=== PATIENT | male | born 1935 | race Caucasian/White ===

== ENCOUNTER 2017-05-23 12:15 | Inpatient (IN) | payer MEDICARE ==
[~2017-05-23] VITALS: Ht 170.2 cm; Wt 105.8 kg
[~2017-05-23 12:15] MED LIST: AMLO2.5T PO; AMLO5TAB22 PO; ASPI325T PO; BRIM.2%O OU; GABA300C3 PO; GLUCTAB PO; HYDR-3533 PO; PERI8.6T PO; ROSU40 PO
[2017-05-23 12:24] VITALS: BP 129/62; PULSE 82; RESP 16; TEMP 98.4; O2SAT 94
[2017-05-23] MEDS ORDERED: ASPI325T PO (12:33)
[2017-05-23] MEDS ORDERED: METF500T4 PO (12:33)
[2017-05-23] MEDS ORDERED: ALPH0.1S RIGHT EYE (12:33)
[2017-05-23] MEDS ORDERED: ROSU5 PO (12:33)
[2017-05-23] MEDS ORDERED: GABA300C5 PO (12:33)
[2017-05-23] MEDS ORDERED: AMLO5TAB2 PO (12:33)
[2017-05-23] MEDS ORDERED: AMLO2.5T PO (12:33)
[2017-05-23 12:50] VITALS: RESP 16; O2SAT 94; O2SAT 97
[2017-05-23 12:57] LABS: AUTOMATED NEUTROPHIL # 5.5 TH/MM3 (1.8-7.7); BASOPHIL % 0.6 % (0.0-2.0); EOSINOPHIL # 0.2 TH/MM3 (0-0.4); EOSINOPHIL % 2.4 % (0.0-4.0); HEMATOCRIT 33.5 % (39.0-51.0); HEMO FLAGS DIFF FINAL; LYMPH % 18.9 % (9.0-44.0); LYMPHOCYTE # 1.5 TH/MM3 (1.0-4.8); MEAN CELL VOLUME 82.4 FL (80.0-100.0); MEAN CORPUSCULAR HEMOGLOBIN 27.1 PG (27.0-34.0); MEAN CORPUSCULAR HGB CONC 32.9 % (32.0-36.0); MONO % 9.4 % (0.0-8.0); NEUT % 68.7 % (16.0-70.0); PLATELET COUNT 297 TH/MM3 (150-450); RED BLOOD COUNT 4.07 MIL/MM3 (4.50-5.90); RED CELL DISTRIBUTION WIDTH 13.5 % (11.6-17.2)
--- NOTE | 2017-05-23 13:00 | PD ---
HPI Chief Complaint: General Weakness Time Seen by Provider: 12:35 Travel History International Travel<30 days: No Contact w/Intl Traveler<30days: No Traveled to known affect area: No History of Present Illness HPI 82 y/o male notes while transferring to his scooter falling and having a hard time getting up. His states that he normally cannot stand up on his own or walk and gets around with a scooter. He denies any pain from the fall and states he feels a little weak all over but he always feels like that. His is concerned because she couldn't get him up. Patient is a poor historian and history is limited. FORMERLY [facility], 1928–1983 Past Medical History Narrative Medical by records Hx Anticoagulant Therapy: Yes Cardiovascular Problems: Yes (HTN, CHOL) Diabetes: Yes Patient Takes Glucophage: Yes Diminished Hearing: Yes (DIMINISHED HEARING) Hypertension: Yes Musculoskeletal: Yes (SPINAL STENOSIS) Neurologic: Yes (NEUROPATHY) Tetanus Vaccination: Unknown Past Surgical History Narrative Surgical by records Other Surgery: Yes (PILONIDAL CYST) Social History Alcohol Use: No Tobacco Use: No Substance Use: No Allergies-Medications (Allergen,Severity, Reaction): Coded Allergies: Penicillin (Verified Allergy, Severe, 05/23/17) Reported Meds & Prescriptions Reported Meds & Active Scripts Active Reported Gabapentin 300 Mg Cap 900 Mg PO HS Alphagan P Opth Drops (Brimonidine Tartrate) 0.1% Soln 1 Drop RIGHT EYE BID Aspirin 325 Mg Tab 325 Mg PO DAILY Amlodipine (Amlodipine Besylate) 5 Mg Tab 5 Mg PO DAILY Amlodipine (Amlodipine Besylate) 2.5 Mg Tab 2.5 Mg PO DAILY Crestor (Rosuvastatin Calcium) 5 Mg Tab 5 Mg PO QOD Metformin ER (Metformin HCl) 500 Mg Shannon 500 Mg PO BID With evening meal Review of Systems ROS Limitations: Poor Historian Except as stated in HPI: all other systems reviewed are Neg Physical Exam Narrative GENERAL: Well-nourished, well-developed patient. SKIN: Warm and dry. HEAD: Normocephalic and atraumatic. EYES: No injection or drainage. ENT: No nasal drainage noted. NECK: Supple, trachea midline. CARDIOVASCULAR: Regular rate and rhythm RESPIRATORY: Breath sounds equal bilaterally at apices. No accessory muscle use. GASTROINTESTINAL: Abdomen soft, non-tender, nondistended. EXTREMITIES: no joint pain with palpation NEUROLOGICAL: Awake and alert. moves extremities but generalized weakness noted throughout which he states he always has. Normal speech. Data Data Last Documented VS Vital Signs Date Time Temp Pulse Resp B/P Pulse Ox O2 Delivery O2 Flow Rate FiO2 05/23/17 13:58 78 18 125/91 97 Room Air 05/23/17 12:50 05/23/17 12:24 98.4 Orders Magnesium (Mg) (05/23/17 12:35) Phosphorus (Po4) (05/23/17 12:35) Complete Blood Count With Diff (05/23/17 12:35) Basic Metabolic Panel (Bmp) (05/23/17 12:35) Urinalysis - C+S If Indicated (05/23/17 12:35) Act Partial Throm Time (Ptt) (05/23/17 12:35) Prothrombin Time / Inr (Pt) (05/23/17 12:35) Ct Brain W/O Iv Contrast(Rout) (05/23/17 ) Iv Access Insert/Monitor (05/23/17 12:35) Ecg Monitoring (05/23/17 12:35) Oximetry (05/23/17 12:35) Sodium Chlorid 0.9% 500 Ml Inj (Ns 500 M (05/23/17 14:00) Labs Laboratory Tests Test 05/23/17 12:40 White Blood Count 8.0 TH/MM3 Red Blood Count 4.07 MIL/MM3 Hemoglobin 11.0 GM/DL Hematocrit 33.5 % Mean Corpuscular Volume 82.4 FL Mean Corpuscular Hemoglobin 27.1 PG Mean Corpuscular Hemoglobin 32.9 % Concent Red Cell Distribution Width 13.5 % Platelet Count 297 TH/MM3 Mean Platelet Volume 6.9 FL Neutrophils (%) (Auto) 68.7 % Lymphocytes (%) (Auto) 18.9 % Monocytes (%) (Auto) 9.4 % Eosinophils (%) (Auto) 2.4 % Basophils (%) (Auto) 0.6 % Neutrophils # (Auto) 5.5 TH/MM3 Lymphocytes # (Auto) 1.5 TH/MM3 Monocytes # (Auto) 0.8 TH/MM3 Eosinophils # (Auto) 0.2 TH/MM3 Basophils # (Auto) 0.0 TH/MM3 CBC Comment DIFF FINAL Differential Comment Prothrombin Time 10.4 SEC Prothromb Time International 0.9 RATIO Ratio Activated Partial 33.4 SEC Thromboplast Time Sodium Level 123 MEQ/L Potassium Level 3.5 MEQ/L Chloride Level 88 MEQ/L Carbon Dioxide Level 24.0 MEQ/L Anion Gap 11 MEQ/L Blood Urea Nitrogen 14 MG/DL Creatinine 0.80 MG/DL Estimat Glomerular Filtration 93 ML/MIN Rate Random Glucose 168 MG/DL Calcium Level 8.0 MG/DL Phosphorus Level 1.6 MG/DL Magnesium Level 1.7 MG/DL MDM Medical Decision Making Medical Screen Exam Complete: Yes Emergency Medical Condition: Yes Medical Record Reviewed: Yes (pmh confirmed) Interpretation(s) CBC & BMP Diagram 05/23/17 12:40 Last [address] 05/23/17 0000 Signed Impressions: Service Date/Time: Tuesday, May 23, 2017 13:29 - CONCLUSION: 1. Stable CT scan of the brain compared to the prior exam from 2014. 2. No change in the bilateral cortical atrophy and chronic white matter changes. Jose M Aranda MD Differential Diagnosis Anemia, renal failure, UTI Narrative Course Will check blood work, urinalysis and reevaluate. Patient's states that she is also concerned he was a little disoriented so will add on CT brain to rule out other process. She is in agreement to workup ordered patient updated about electrolyte abnormalities, agrees to admit Physician Communication Physician Communication dr knight agrees to admit Diagnosis Primary Impression: Hyponatremia Additional Impressions: Hypophosphatemia Weakness Admitting Information Admitting Physician Requests: Admit Andria Meehan MD May 23, 2017 13:00
[2017-05-23 13:34] LABS: APTT (PATIENT) 33.4 SEC (24.3-30.1); INTERNATIONAL NORMALIZED RATIO 0.9 RATIO; PROTHROMBIN TIME - PATIENT 10.4 SEC (9.8-11.6)
--- NOTE | 2017-05-23 13:52 | RADRPT ---
EXAM DATE/TIME: 05/23/2017 13:29 [facility] COMPARISON: CT BRAIN W/O CONTRAST, March 31, 2015, 9:05. INDICATIONS : Trauma. Fall. General weakness. RADIATION DOSE: 68.71 CTDIvol (mGy) MEDICAL HISTORY : Hypertension. Diabetes mellitus type 2. SURGICAL HISTORY : None. ENCOUNTER: Initial ACUITY: 1 day PAIN SCALE: 0/10 LOCATION: cranial TECHNIQUE: Multiple contiguous axial images were obtained of the head. Using automated exposure control and adj ustment of the mA and/or kV according to patient size, radiation dose was kept as low as reasonably a chievable to obtain optimal diagnostic quality images. DICOM format image data is available electro nically for review and comparison. FINDINGS: CEREBRUM: The ventricles are normal for age. Bilateral cortical atrophy and chronic white matter changes. No e vidence of midline shift, mass lesion, hemorrhage or acute infarction. No extra-axial fluid collecti ons are seen. POSTERIOR FOSSA: The cerebellum and brainstem are intact. The 4th ventricle is midline. The cerebellopontine angle i s unremarkable. EXTRACRANIAL: The visualized portion of the orbits is intact. SKULL: The calvaria is intact. No evidence of skull fracture. CONCLUSION: 1. Stable CT scan of the brain compared to the prior exam from 2014. 2. No change in the bilateral cortical atrophy and chronic white matter changes. Jose M Aranda MD on May 23, 2017 at 13:48 Board Certified Radiologist. This report was verified electronically.
[2017-05-23 13:53] LABS: MAGNESIUM 1.7 MG/DL (1.5-2.5); POTASSIUM 3.5 MEQ/L (3.5-5.1)
[2017-05-23 13:58] VITALS: BP 125/91; PULSE 78; RESP 18; O2SAT 97
[2017-05-23] MEDS ORDERED: SODIUM CHLORID 0.9% 500 ML INJ 500 ML IV ONE (14:00)
[2017-05-23 15:00] VITALS: BP 149/86
[2017-05-23 15:15] VITALS: BP 142/78; PULSE 76; RESP 20; TEMP 98.1; O2SAT 96
[2017-05-23] MEDS ORDERED: SODIUM CHLOR 0.9% 1000 ML INJ 1,000 ML IV SCH (15:17)
[2017-05-23 15:22] LABS: BLOOD, URINE NEG (NEG); GLUCOSE,URINE NEG (NEG); KETONE, URINE NEG (NEG); NITRITE,URINE NEG (NEG)
[2017-05-23] MEDS ORDERED: ONDANSETRON HCL 4 MG/2 ML VIAL IVP PRN (15:30)
[2017-05-23] MEDS ORDERED: SENNOSIDES 8.6 MG TAB PO PRN (15:30)
[2017-05-23] MEDS ORDERED: SODIUM CHLORIDE 0.9% FLUSH 10 ML FLUSH IV FLUSH PRN (15:30)
[2017-05-23] MEDS ORDERED: MAGNESIUM HYDROXIDE SUSP 30 ML CUP PO PRN (15:30)
[2017-05-23] MEDS ORDERED: ACETAMINOPHEN 325 MG TAB PO PRN (15:30)
[2017-05-23] MEDS ORDERED: BISACODYL 10 MG SUPP RECTAL PRN (15:30)
[2017-05-23] MEDS ORDERED: LACTULOSE SYRUP 20 GM/30 ML CUP PO PRN (15:30)
[2017-05-23 15:34] LABS: METHOD OF COLLECTION CLEAN CATCH; URINE COLOR YELLOW (YELLW/STRAW)
[2017-05-23 15:35] LABS: COMMENT (UR) CULT NOT INDICATED; CULTURE IF INDICATED CULT NOT INDICATED; MUCUS URINE FEW /lpf (OCC); SQUAMOUS EPITHELIAL CELL URINE 0-3 /hpf (0-5); WBC, URINE 0-2 /hpf (0-5)
--- NOTE | 2017-05-23 16:38 | HHI.HP ---
HPI Service [facility] Hospitalists Primary Care Physician Mylene Foy MD Admission Diagnosis hyponatremia Diagnoses: Chief Complaint: "My Legs felt weak" Travel History International Travel<30 Days: No Contact w/Intl Traveler <30 Da: No Traveled to Known Affected Are: No History of Present Illness Is an 82-year-old male with past medical history as stated below presents to [facility] complaining of weakness in bilateral lower extremities. The patient is hard of hearing and somewhat a poor historian. History is obtained with the help of the patient's who is at bedside and from ED physician report. The patient states that approximately a week ago he has been having an upper respiratory infection with cough, postnasal dripping, denies fevers or chills, denies loss of appetite and states he has been eating and drinking fluids well. Patient's corroborates this. The patient denies shortness of breath however he states he has been coughing. Denies wheezing denies fevers or chills. Patient was brought to [facility] because this morning he slid down from his chair while trying to transfer to his car. He states that he usually is able to transfer without problem, however he felt his lower extremities were weaker. The patient denies any dysuria, abdominal pain, nausea, vomiting, diarrhea. At the moment of this interview the patient is coughing and there out of trouble wheezing. Review of Systems As per history of present illness, other systems reviewed by me and negative. Past Family Social History Past Medical History Chronic hyponatremia Hypertension Diabetes Neuropathy Spinal stenosis Hyperlipidemia Pilonidal cyst in the back. Diminished hearing Past Surgical History Pilonidal cyst removal Surgery of the left leg up on a for fracture. Reported Medications Reported Meds & Active Scripts Active Reported Gabapentin 300 Mg Cap 200 Mg PO HS Alphagan P Opth Drops (Brimonidine Tartrate) 0.1% Soln 1 Drop RIGHT EYE BID Aspirin 325 Mg Tab 325 Mg PO DAILY Amlodipine (Amlodipine Besylate) 5 Mg Tab 5 Mg PO DAILY Amlodipine (Amlodipine Besylate) 2.5 Mg Tab 2.5 Mg PO DAILY Crestor (Rosuvastatin Calcium) 5 Mg Tab 5 Mg PO QOD Metformin ER (Metformin HCl) 500 Mg Shannon 500 Mg PO BID With evening meal Allergies: Coded Allergies: Penicillin (Verified Allergy, Severe, 05/23/17) Active Ordered Medications Current Medications Medications (Trade) Dose Ordered Sig/Darrius Route Start Time Stop Time Status Last Admin (NS 1000 ml Inj) 1,000 ml @ 100 mls/hr Q10H IV 05/23/17 15:17 05/23/17 15:17 (NS Flush) 2 ml UNSCH PRN IV FLUSH 05/23/17 15:30 (NS Flush) 2 ml BID IV FLUSH 05/23/17 21:00 (Tylenol) 650 mg Q4H PRN PO 05/23/17 15:30 (Zofran Inj) 4 mg Q6H PRN IVP 05/23/17 15:30 (Lovenox Inj) 40 mg Q24H SQ 05/23/17 16:00 (Leslie-Colace) 1 tab BID PO 05/23/17 21:00 (Milk Of Magnesia Liq) 30 ml Q12H PRN PO 05/23/17 15:30 (Senokot) 17.2 mg Q12H PRN PO 05/23/17 15:30 (Dulcolax Supp) 10 mg DAILY PRN RECTAL 05/23/17 15:30 (Lactulose Liq) 30 ml DAILY PRN PO 05/23/17 15:30 Family History Patient states his father had colon cancer Patient states his mother had COPD. Social History Patient is a former smoker and quit 4 years ago Denies regular alcohol Denies using illicit drugs. The patient is and lives with his . Physical Exam Vital Signs Vital Signs Date Time Temp Pulse Resp B/P Pulse Ox O2 Delivery O2 Flow Rate FiO2 05/23/17 15:15 98.1 76 20 142/78 96 05/23/17 15:00 72 16 149/86 94 05/23/17 13:58 78 18 125/91 97 Room Air 05/23/17 12:50 16 94 Room Air 05/23/17 12:24 98.4 82 16 129/62 94 05/23/17 12:21 16 94 Room Air Physical Exam GENERAL: This is a well-nourished, well-developed patient, in no apparent distress. SKIN: No rashes, ecchymoses or lesions. Cool and dry. HEAD: Atraumatic. Normocephalic. No temporal or scalp tenderness. EYES: Pupils equal round and reactive. Extraocular motions intact. No scleral icterus. No injection or drainage. ENT: Nose without bleeding, purulent drainage or septal hematoma. Throat without erythema, tonsillar hypertrophy or exudate. Uvula midline. Airway patent. NECK: Trachea midline. No JVD or lymphadenopathy. Supple, nontender, no meningeal signs. CARDIOVASCULAR: Regular rate and rhythm without murmurs, gallops, or rubs. RESPIRATORY: There is diffuse expiratory wheezing in the upper lobes, there is decreased air entry at the bases. No rhonchi auscultated. GASTROINTESTINAL: Abdomen soft, non-tender, nondistended. No hepato-splenomegaly , or palpable masses. No guarding. MUSCULOSKELETAL: Extremities without clubbing, cyanosis, or edema. No joint tenderness, effusion, or edema noted. No calf tenderness. Negative Homans sign bilaterally. NEUROLOGICAL: Awake and alert. Cranial nerves II through XII intact. Motor and sensory grossly within normal limits. 4 out of 5 muscle strength in all muscle groups. Normal speech. Laboratory Laboratory Tests Test 05/23/17 05/23/17 12:40 15:00 White Blood Count 8.0 Red Blood Count 4.07 Hemoglobin 11.0 Hematocrit 33.5 Mean Corpuscular Volume 82.4 Mean Corpuscular Hemoglobin 27.1 Mean Corpuscular Hemoglobin 32.9 Concent Red Cell Distribution Width 13.5 Platelet Count 297 Mean Platelet Volume 6.9 Neutrophils (%) (Auto) 68.7 Lymphocytes (%) (Auto) 18.9 Monocytes (%) (Auto) 9.4 Eosinophils (%) (Auto) 2.4 Basophils (%) (Auto) 0.6 Neutrophils # (Auto) 5.5 Lymphocytes # (Auto) 1.5 Monocytes # (Auto) 0.8 Eosinophils # (Auto) 0.2 Basophils # (Auto) 0.0 CBC Comment DIFF FINAL Differential Comment Prothrombin Time 10.4 Prothromb Time International 0.9 Ratio Activated Partial 33.4 Thromboplast Time Sodium Level 123 Potassium Level 3.5 Chloride Level 88 Carbon Dioxide Level 24.0 Anion Gap 11 Blood Urea Nitrogen 14 Creatinine 0.80 Estimat Glomerular Filtration 93 Rate Random Glucose 168 Calcium Level 8.0 Phosphorus Level 1.6 Magnesium Level 1.7 Urine Collection Type CLEAN CATCH Urine Color YELLOW Urine Turbidity CLEAR Urine pH 6.0 Urine Specific [place] 1.019 Urine Protein NEG Urine Glucose (UA) NEG Urine Ketones NEG Urine Occult Blood NEG Urine Nitrite NEG Urine Bilirubin NEG Urine Leukocyte Esterase NEG Urine WBC 0-2 Urine Squamous Epithelial 0-3 Cells Urine Mucus FEW Microscopic Urinalysis Comment CULT NOT INDICATED Result Diagram: 05/23/17 1240 05/23/17 1240 Imaging Last Impressions Head CT 05/23/17 0000 Signed Impressions: Service Date/Time: Sunday, May 23, 2017 13:29 - CONCLUSION: 1. Stable CT scan of the brain compared to the prior exam from 2014. 2. No change in the bilateral cortical atrophy and chronic white matter changes. Jose M Aranda MD Reviewed by me Assessment and Plan Problem List: (1) Hyponatremia ICD Code: E87.1 Status: Acute Plan: This is an 82-year-old male with past medical history of hypertension, hyperlipidemia, diabetes, neuropathy and spinal stenosis presents to [facility] complaining of bilateral extremity weakness after he slipped from his chair while transferred to the car. Patient was given Proventil amounts of normal saline in emergency department. I will order chest x-ray Admit the patient to the general medical floor, monitor BMP After the chest x-rays back will decide if the patient will be placed on IV fluids or if the patient will be diuresed Check urine and serum osmolality. (2) Weakness ICD Code: R53.1 Status: Acute Plan: Physical therapy evaluation. (3) Hypophosphatemia ICD Code: E83.39 Status: Acute Plan: Possibly secondary to decreased oral intake. Replace orally and monitor levels. (4) Wheezing ICD Code: R06.2 Status: Acute Plan: Will check a chest x-ray to assess. (5) DM (diabetes mellitus) ICD Code: E11.9 Status: Acute Plan: Hold metformin. Place on SSI with insulin NovoLog and monitor Accu- Cheks. (6) HLD (hyperlipidemia) ICD Code: E78.5 Status: Acute Plan: Continue statin. (7) HTN (hypertension) ICD Code: I10 Status: Acute Plan: Seems stable. Continue home antihypertensive medications which include amlodipine 7.5 mg by mouth daily. (8) Neuropathy ICD Code: G62.9 Status: Acute Plan: Seems to be stable. Continue gabapentin. (9) Glaucoma ICD Code: H40.9 Status: Acute Plan: Continue home Alphagan ophthalmic drops to the right eye. Assessment and Plan DVT prophylaxis: SCDs, Lovenox subcutaneously. Code Status Full code Discussed Condition With AP physician, patient, Physician Certification 2 Midnight Certification Type: Admission for Inpatient Services Order for Inpatient Services The services are ordered in accordance with Medicare regulations or non- Medicare payer requirements, as applicable. In the case of services not specified as inpatient-only, they are appropriately provided as inpatient services in accordance with the 2-midnight benchmark. Estimated LOS (days): 2 days is the estimated time the patient will need to remain in the hospital, assuming treatment plan goals are met and no additional complications. Post-Hospital Plan: Not yet determined Problem Qualifiers (1) DM (diabetes mellitus): (2) HLD (hyperlipidemia): Qualified Code: E78.5 - Hyperlipidemia, unspecified hyperlipidemia type (3) HTN (hypertension): Qualified Code: I10 - Essential hypertension (4) Glaucoma: Qualified Code: H40.9 - Glaucoma of right eye, unspecified glaucoma type Nathaniel Benavides MD May 23, 2017 16:38
--- NOTE | 2017-05-23 17:05 | RADRPT ---
EXAM DATE/TIME: 05/23/2017 16:43 [facility] COMPARISON: No previous studies available for comparison. INDICATIONS : Cough for 2 days MEDICAL HISTORY : Hypertension. SURGICAL HISTORY : None. ENCOUNTER: Initial ACUITY: 2 days PAIN SCORE: 0/10 LOCATION: Bilateral chest FINDINGS: Patchy airspace disease in the left lower lobe with associated volume loss. Cardiac silhouette is in the upper limits of normal. Central pulmonary vascularity is slightly indistinct. Bony thorax is inta ct. CONCLUSION: 1. Mild patchy left lower lobe airspace disease with associated mild volume loss. Differential consid erations include atelectasis versus developing pneumonia. Jayden Lundy MD on May 23, 2017 at 16:59 Board Certified Radiologist. This report was verified electronically.
[2017-05-23] MEDS: ENOXAPARIN SODIUM 40 MG/0.4 ML SYRINGE SQ SCH (17:39)
[2017-05-23 17:40] LABS: POTASSIUM 3.5 MEQ/L (3.5-5.1)
[2017-05-23 17:43] LABS: BICARBONATE 24.9 MEQ/L (21.0-32.0)
[2017-05-23 20:00] VITALS: BP 137/83; PULSE 80; RESP 20; TEMP 96.7; O2SAT 96
[2017-05-23] MEDS: DOCUSATE SODIUM 50 MG/SENNA 8.6 MG TAB PO SCH (21:00)
[2017-05-23] MEDS: SODIUM CHLORIDE 0.9% FLUSH 10 ML FLUSH IV FLUSH SCH (21:00)
[2017-05-24] VITALS: BP 150/89; PULSE 87; RESP 20; TEMP 96.9; O2SAT 96
[2017-05-24 06:27] LABS: BASOPHIL % 0.5 % (0.0-2.0); EOSINOPHIL # 0.2 TH/MM3 (0-0.4); EOSINOPHIL % 2.4 % (0.0-4.0); HEMATOCRIT 34.9 % (39.0-51.0); HEMO FLAGS DIFF FINAL; LYMPH % 19.3 % (9.0-44.0); LYMPHOCYTE # 1.7 TH/MM3 (1.0-4.8); MEAN CELL VOLUME 83.8 FL (80.0-100.0); MEAN CORPUSCULAR HEMOGLOBIN 27.7 PG (27.0-34.0); MEAN CORPUSCULAR HGB CONC 33.1 % (32.0-36.0); MONO % 9.7 % (0.0-8.0); NEUT % 68.1 % (16.0-70.0); PLATELET COUNT 302 TH/MM3 (150-450); RED BLOOD COUNT 4.16 MIL/MM3 (4.50-5.90); RED CELL DISTRIBUTION WIDTH 13.6 % (11.6-17.2); WHITE BLOOD COUNT 8.7 TH/MM3 (4.0-11.0)
[2017-05-24 06:34] LABS: CHLORIDE 92 MEQ/L (98-107); POTASSIUM 3.4 MEQ/L (3.5-5.1); SODIUM (NA) 129 MEQ/L (136-145)
[2017-05-24 06:40] LABS: ANION GAP 9 MEQ/L (5-15); BICARBONATE 28.3 MEQ/L (21.0-32.0); BLOOD UREA NITROGEN 9 MG/DL (7-18)
[2017-05-24 06:43] LABS: ALT (GPT) 36 U/L (12-78); AST (GOT) 29 U/L (15-37); GLOMERULAR FILTRATION RATE 116 ML/MIN (>89)
[2017-05-24 06:45] LABS: TOTAL BILIRUBIN ADULT 0.5 MG/DL (0.2-1.0)
[2017-05-24 06:46] LABS: ALKALINE PHOSPHATASE 65 U/L (45-117)
[2017-05-24] MEDS: LEVOFLOXACIN 750 MG PREMIX INJ 150 ML IV SCH (07:22)
[2017-05-24] MEDS: SODIUM CHLOR 0.9% 1000 ML INJ 1,000 ML IV SCH ×2 (07:24→17:40)
[2017-05-24 08:00] VITALS: BP 157/94; PULSE 74; RESP 20; TEMP 96.7; O2SAT 96
[2017-05-24] MEDS: SODIUM CHLORIDE 0.9% FLUSH 10 ML FLUSH IV FLUSH SCH ×2 (09:00→21:00)
[2017-05-24] MEDS ORDERED: POTASSIUM CHLORIDE 10 MEQ CONTROLLED RELEASE TAB PO ONE (09:45)
[2017-05-24] MEDS ORDERED: amLODIPine BESYLATE 5 MG TAB PO SCH ×3 (10:00→10:15)
[2017-05-24] MEDS ORDERED: amLODIPine BESYLATE 5 MG TAB PO ONE (10:03)
[2017-05-24] MEDS ORDERED: ATORVASTATIN 10 MG TAB PO ONE (10:15)
[2017-05-24] MEDS: BRIMONIDINE OPTH RIGHT EYE SCH (10:30)
[2017-05-24] MEDS: ASPIRIN 325 MG TAB PO SCH (10:30)
[2017-05-24] MEDS: DOCUSATE SODIUM 50 MG/SENNA 8.6 MG TAB PO SCH ×2 (10:31→21:06)
[2017-05-24] MEDS: amLODIPine BESYLATE 5 MG TAB PO SCH ×2 (10:32→21:06)
[2017-05-24] MEDS: metFORMIN HCL 500 MG TAB PO SCH ×2 (10:45→21:06)
--- NOTE | 2017-05-24 11:48 | HHI.PR ---
Subjective Remarks Patient denies cp/sob states feels much better and wants to go home denies cough afebrile Objective Vitals Vital Signs Date Time Temp Pulse Resp B/P Pulse Ox O2 Delivery O2 Flow Rate FiO2 05/24/17 08:00 96.7 74 20 157/94 96 05/24/17 00:00 96.9 87 20 150/89 96 05/23/17 20:00 96.7 80 20 137/83 96 05/23/17 15:15 98.1 76 20 142/78 96 05/23/17 15:00 72 16 149/86 94 05/23/17 13:58 78 18 125/91 97 Room Air 05/23/17 12:50 16 94 Room Air 05/23/17 12:24 98.4 82 16 129/62 94 05/23/17 12:21 16 94 Room Air I/O 05/23/17 05/23/17 05/23/17 05/24/17 05/24/17 05/24/17 07:00 15:00 23:00 07:00 15:00 23:00 Intake Total 450 ml 2065 ml 660 ml Output Total 300 ml 1200 ml Balance 450 ml 1765 ml -540 ml Intake Oral 450 ml 240 ml 660 ml IV Total 1825 ml Output Urine Total 300 ml 1200 ml Stool Total 0 ml # Voids 1 10 # Bowel Movements 0 1 Result Diagram: 05/24/17 0515 05/24/17 0515 Imaging Last Impressions Head CT 05/23/17 0000 Signed Impressions: Service Date/Time: Tuesday, May 23, 2017 13:29 - CONCLUSION: 1. Stable CT scan of the brain compared to the prior exam from 2014. 2. No change in the bilateral cortical atrophy and chronic white matter changes. Jose M Aranda MD Chest X-Ray 05/23/17 0000 Signed Impressions: Service Date/Time: Tuesday, May 23, 2017 16:43 - CONCLUSION: 1. Mild patchy left lower lobe airspace disease with associated mild volume loss. Differential considerations include atelectasis versus developing pneumonia. Jayden Lundy MD Objective Remarks GENERAL: This is a well-nourished, well-developed patient, in no apparent distress. SKIN: No rashes, ecchymoses or lesions. Cool and dry. HEAD: Atraumatic. Normocephalic. No temporal or scalp tenderness. EYES: Pupils equal round and reactive. Extraocular motions intact. No scleral icterus. No injection or drainage. ENT: Nose without bleeding, purulent drainage or septal hematoma. Throat without erythema, tonsillar hypertrophy or exudate. Uvula midline. Airway patent. NECK: Trachea midline. No JVD or lymphadenopathy. Supple, nontender, no meningeal signs. CARDIOVASCULAR: Regular rate and rhythm without murmurs, gallops, or rubs. RESPIRATORY: Lungs are clear to auscultation bilaterally. No rales or rhonchi auscultated. GASTROINTESTINAL: Abdomen soft, non-tender, nondistended. No hepato-splenomegaly , or palpable masses. No guarding. MUSCULOSKELETAL: Extremities without clubbing, cyanosis, or edema. No joint tenderness, effusion, or edema noted. No calf tenderness. Negative Homans sign bilaterally. NEUROLOGICAL: Awake and alert. Cranial nerves II through XII intact. Motor and sensory grossly within normal limits. 4 out of 5 muscle strength in all muscle groups. Normal speech. Procedures None Medications and IVs Current Medications Medications (Trade) Dose Ordered Sig/Darrius Route Start Time Stop Time Status Last Admin (NS Flush) 2 ml UNSCH PRN IV FLUSH 05/23/17 15:30 (NS Flush) 2 ml BID IV FLUSH 05/23/17 21:00 05/23/17 21:00 (Tylenol) 650 mg Q4H PRN PO 05/23/17 15:30 (Zofran Inj) 4 mg Q6H PRN IVP 05/23/17 15:30 (Lovenox Inj) 40 mg Q24H SQ 05/23/17 16:00 05/23/17 17:39 (Leslie-Colace) 1 tab BID PO 05/23/17 21:00 05/24/17 10:31 (Milk Of Magnesia Liq) 30 ml Q12H PRN PO 05/23/17 15:30 (Senokot) 17.2 mg Q12H PRN PO 05/23/17 15:30 (Dulcolax Supp) 10 mg DAILY PRN RECTAL 05/23/17 15:30 Lactulose 30 ml 30 ml DAILY PRN PO 05/23/17 15:30 Sodium Chloride 1,000 ml @ 84 mls/hr [id number] IV 7/6/17 05:45 05/24/17 07:24 (Levaquin 750 Mg Premix Inj) 150 ml @ 100 mls/hr Q24H IV 05/24/17 06:00 05/24/17 07:22 (Aspirin) 325 mg DAILY PO 05/24/17 10:00 05/24/17 10:30 (Neurontin) 200 mg HS PO 05/24/17 21:00 Patient Own Medication PT OWN MED: (Brimonidine O... BID RIGHT EYE 05/24/17 10:30 Hold (Lipitor) 10 mg Q2D PO 05/26/17 09:00 (Glucophage) 500 mg BID PO 05/24/17 10:30 05/24/17 10:45 (Norvasc) 2.5 mg HS PO 05/24/17 21:00 (Norvasc) 5 mg DAILY PO 05/24/17 10:22 05/24/17 10:32 Urinary Catheter: No Vascular Central Line Catheter: No A/P Problem List: (1) Hyponatremia ICD Code: E87.1 Status: Acute Plan: This is an 82-year-old male with past medical history of hypertension, hyperlipidemia, diabetes, neuropathy and spinal stenosis presents to [facility] complaining of bilateral extremity weakness after he slipped from his chair while transferred to the car. Patient was administered IV normal saline in the ED - 500 ml Patient was admitted to medical floor Sodium is slowly trending up, 129 on 05/24 (2) Weakness ICD Code: R53.1 Status: Acute Plan: Physical therapy evaluation - pending (3) Hypophosphatemia ICD Code: E83.39 Status: Acute Plan: Possibly secondary to decreased oral intake. Replaced orally and monitor levels. (4) Wheezing ICD Code: R06.2 Status: Acute Plan: Chest x-ray showed mild patchy left lower lobe airspace disease with associated mild volume loss. Possibly secondary to commit acquired pneumonia. I started the patient on IV Levaquin since patient is penicillin allergic. Wheezing has resolved. (5) DM (diabetes mellitus) ICD Code: E11.9 Status: Acute Plan: Hold metformin. Place on SSI with insulin NovoLog and monitor Accu- Cheks. (6) HLD (hyperlipidemia) ICD Code: E78.5 Status: Acute Plan: Continue statin. (7) HTN (hypertension) ICD Code: I10 Status: Acute Plan: Seems stable. Continue home antihypertensive medications which include amlodipine 7.5 mg by mouth daily. (8) Neuropathy ICD Code: G62.9 Status: Acute Plan: Seems to be stable. Continue gabapentin. (9) Glaucoma ICD Code: H40.9 Status: Acute Plan: Continue home Alphagan ophthalmic drops to the right eye. (10) CAP (community acquired pneumonia) ICD Code: J18.9 Status: Acute Plan: IV Levaquin Assessment and Plan DVT prophylaxis: Lovenox cutaneously, SCDs. Discharge Planning DC pending PT eval and improvement of sodium. Possible disease in a.m. Problem Qualifiers (1) DM (diabetes mellitus): Qualified Code: E11.42 - Type 2 diabetes mellitus with diabetic polyneuropathy , without long-term current use of insulin (2) HLD (hyperlipidemia): Qualified Code: E78.5 - Hyperlipidemia, unspecified hyperlipidemia type (3) HTN (hypertension): Qualified Code: I10 - Essential hypertension (4) Glaucoma: Qualified Code: H40.9 - Glaucoma of right eye, unspecified glaucoma type Nathaniel Benavides MD May 24, 2017 11:48
[2017-05-24 12:00] VITALS: BP 152/87; PULSE 75; RESP 20; TEMP 96.3; O2SAT 97
[2017-05-24] MEDS: POTASSIUM PHOSPHATE/SODIUM PHOSPHATE 250 MG TAB PO SCH ×2 (12:36→21:06)
[2017-05-24 15:29] VITALS: BP 156/86; PULSE 80; RESP 20; TEMP 98.1; O2SAT 97
[2017-05-24] MEDS: ENOXAPARIN SODIUM 40 MG/0.4 ML SYRINGE SQ SCH (17:39)
[2017-05-24 20:00] VITALS: BP 149/87; PULSE 88; RESP 20; TEMP 99.3; O2SAT 94
[2017-05-24] MEDS: GABAPENTIN 100 MG CAP PO SCH (21:06)
[2017-05-25] VITALS: BP 142/84; PULSE 80; RESP 18; TEMP 98.9; O2SAT 94
[2017-05-25] MEDS: SODIUM CHLOR 0.9% 1000 ML INJ 1,000 ML IV SCH (06:05)
[2017-05-25] MEDS: LEVOFLOXACIN 750 MG PREMIX INJ 150 ML IV SCH (06:05)
[2017-05-25] MEDS: POTASSIUM PHOSPHATE/SODIUM PHOSPHATE 250 MG TAB PO SCH ×3 (06:06→22:24)
[2017-05-25 06:40] LABS: POTASSIUM 3.6 MEQ/L (3.5-5.1)
[2017-05-25 06:43] LABS: BICARBONATE 27.9 MEQ/L (21.0-32.0)
[2017-05-25 08:00] VITALS: BP 145/93; PULSE 90; RESP 20; TEMP 98.1; O2SAT 95
[2017-05-25] MEDS: DOCUSATE SODIUM 50 MG/SENNA 8.6 MG TAB PO SCH ×2 (08:05→22:24)
[2017-05-25] MEDS: ASPIRIN 325 MG TAB PO SCH (08:05)
[2017-05-25] MEDS: amLODIPine BESYLATE 5 MG TAB PO SCH ×2 (08:06→22:25)
[2017-05-25] MEDS: metFORMIN HCL 500 MG TAB PO SCH ×2 (08:06→22:24)
[2017-05-25] MEDS: SODIUM CHLORIDE 0.9% FLUSH 10 ML FLUSH IV FLUSH SCH ×2 (08:09→22:24)
[2017-05-25] MEDS ORDERED: POTASSIUM CHLORIDE 20 MEQ CONTROLLED RELEASE TAB PO ONE (09:30)
[2017-05-25 12:00] VITALS: BP 138/86; PULSE 85; RESP 20; TEMP 96; O2SAT 96
--- NOTE | 2017-05-25 12:24 | HHI.PR ---
Subjective Remarks Denies cp/sob denies fevers/chills Objective Vitals Vital Signs Date Time Temp Pulse Resp B/P Pulse Ox O2 Delivery O2 Flow Rate FiO2 05/25/17 08:00 98.1 90 20 145/93 95 05/25/17 00:00 98.9 80 18 142/84 94 05/24/17 20:00 99.3 88 20 149/87 94 05/24/17 20:00 99.3 88 20 149/87 94 05/24/17 15:29 98.1 80 20 156/86 97 I/O 05/24/17 05/24/17 05/24/17 05/25/17 05/25/17 05/25/17 07:00 15:00 23:00 07:00 15:00 23:00 Intake Total 660 ml 660 ml 550 ml 860 ml Output Total 1200 ml 1200 ml 600 ml 1000 ml Balance -540 ml -540 ml -50 ml -140 ml Intake Oral 660 ml 660 ml 550 ml 860 ml Output Urine Total 1200 ml 1200 ml 600 ml 1000 ml # Bowel Movements 1 1 0 Result Diagram: 05/24/17 0515 05/25/17 0555 Imaging Last Impressions Head CT 05/23/17 0000 Signed Impressions: Service Date/Time: Tuesday, May 23, 2017 13:29 - CONCLUSION: 1. Stable CT scan of the brain compared to the prior exam from 2014. 2. No change in the bilateral cortical atrophy and chronic white matter changes. Jose M Aranda MD Chest X-Ray 05/23/17 0000 Signed Impressions: Service Date/Time: Tuesday, May 23, 2017 16:43 - CONCLUSION: 1. Mild patchy left lower lobe airspace disease with associated mild volume loss. Differential considerations include atelectasis versus developing pneumonia. Jayden Lundy MD Objective Remarks GENERAL: This is a well-nourished, well-developed patient, in no apparent distress. SKIN: No rashes, ecchymoses or lesions. Cool and dry. HEAD: Atraumatic. Normocephalic. No temporal or scalp tenderness. EYES: Pupils equal round and reactive. Extraocular motions intact. No scleral icterus. No injection or drainage. ENT: Nose without bleeding, purulent drainage or septal hematoma. Throat without erythema, tonsillar hypertrophy or exudate. Uvula midline. Airway patent. NECK: Trachea midline. No JVD or lymphadenopathy. Supple, nontender, no meningeal signs. CARDIOVASCULAR: Regular rate and rhythm without murmurs, gallops, or rubs. RESPIRATORY: Lungs are clear to auscultation bilaterally. No rales or rhonchi auscultated. GASTROINTESTINAL: Abdomen soft, non-tender, nondistended. No hepato-splenomegaly , or palpable masses. No guarding. MUSCULOSKELETAL: Extremities without clubbing, cyanosis, or edema. No joint tenderness, effusion, or edema noted. No calf tenderness. Negative Homans sign bilaterally. NEUROLOGICAL: Awake and alert. Cranial nerves II through XII intact. Motor and sensory grossly within normal limits. 4 out of 5 muscle strength in all muscle groups. Normal speech. Procedures None Medications and IVs Current Medications Medications (Trade) Dose Ordered Sig/Darrius Route Start Time Stop Time Status Last Admin (NS Flush) 2 ml UNSCH PRN IV FLUSH 05/23/17 15:30 (NS Flush) 2 ml BID IV FLUSH 05/23/17 21:00 05/23/17 21:00 (Tylenol) 650 mg Q4H PRN PO 05/23/17 15:30 (Zofran Inj) 4 mg Q6H PRN IVP 05/23/17 15:30 (Lovenox Inj) 40 mg Q24H SQ 05/23/17 16:00 05/24/17 17:39 (Leslie-Colace) 1 tab BID PO 05/23/17 21:00 05/25/17 08:05 (Milk Of Magnesia Liq) 30 ml Q12H PRN PO 05/23/17 15:30 (Senokot) 17.2 mg Q12H PRN PO 05/23/17 15:30 (Dulcolax Supp) 10 mg DAILY PRN RECTAL 05/23/17 15:30 (Lactulose Liq) 30 ml DAILY PRN PO 05/23/17 15:30 (Aspirin) 325 mg DAILY PO 05/24/17 10:00 05/25/17 08:05 (Neurontin) 200 mg HS PO 05/24/17 21:00 05/24/17 21:06 Patient Own Medication PT OWN MED: (Brimonidine(Alphagan... BID RIGHT EYE 05/24/17 10:30 (Lipitor) 10 mg Q2D PO 05/26/17 09:00 (Glucophage) 500 mg BID PO 05/24/17 10:30 05/25/17 08:06 (Norvasc) 2.5 mg HS PO 05/24/17 21:00 05/24/17 21:06 (Norvasc) 5 mg DAILY PO 05/24/17 10:22 05/25/17 08:06 (K-Phos Neutral) 250 mg Q8HR PO 05/24/17 14:00 05/25/17 06:06 (Levaquin) 750 mg DAILY@11 PO 05/26/17 11:00 Urinary Catheter: Yes Assessment to: Remove A/P Problem List: (1) Hyponatremia ICD Code: E87.1 Status: Acute (2) Weakness ICD Code: R53.1 Status: Acute (3) Hypophosphatemia ICD Code: E83.39 Status: Acute (4) Wheezing ICD Code: R06.2 Status: Resolved (5) DM (diabetes mellitus) ICD Code: E11.9 Status: Chronic (6) HLD (hyperlipidemia) ICD Code: E78.5 Status: Chronic (7) HTN (hypertension) ICD Code: I10 Status: Chronic (8) Neuropathy ICD Code: G62.9 Status: Chronic (9) Glaucoma ICD Code: H40.9 Status: Chronic (10) CAP (community acquired pneumonia) ICD Code: J18.9 Status: Acute Assessment and Plan (1) Hyponatremia This is an 82-year-old male with past medical history of hypertension, hyperlipidemia, diabetes, neuropathy and spinal stenosis presents to [facility] complaining of bilateral extremity weakness after he slipped from his chair while transferred to the car. Patient was administered IV normal saline in the ED - 500 ml Patient was admitted to medical floor IV normal saline continued, hyponatremia resolved - DC IV fluids. (2) Weakness Physical therapy evaluation appreciated. Case discussed with physical therapist patient very weak as per his report will need physical therapy. (3) Hypophosphatemia Possibly secondary to decreased oral intake. Replaced orally and monitor levels. (4) Wheezing Chest x-ray showed mild patchy left lower lobe airspace disease with associated mild volume loss. Possibly secondary to commit acquired pneumonia. Patient started the patient on IV Levaquin since patient is penicillin allergic. Wheezing resolved. (5) DM (diabetes mellitus) Hold metformin. Place on SSI with insulin NovoLog and monitor Accu-Cheks. (6) HLD (hyperlipidemia) Continue statin. (7) HTN (hypertension) Seems stable. Continue home antihypertensive medications which include amlodipine 7.5 mg by mouth daily. (8) Neuropathy Seems to be stable. Continue gabapentin. (9) Glaucoma Continue home Alphagan ophthalmic drops to the right eye. (10) CAP (community acquired pneumonia) Treated with IV Levaquin, will switch to oral Levaquin. DVT prophylaxis: Lovenox cutaneously, SCDs. Discharge Planning Patient needs SNF placement. DC in am. Problem Qualifiers (1) DM (diabetes mellitus): Qualified Code: E11.42 - Type 2 diabetes mellitus with diabetic polyneuropathy , without long-term current use of insulin (2) HLD (hyperlipidemia): Qualified Code: E78.5 - Hyperlipidemia, unspecified hyperlipidemia type (3) HTN (hypertension): Qualified Code: I10 - Essential hypertension (4) Glaucoma: Qualified Code: H40.9 - Glaucoma of right eye, unspecified glaucoma type Nathaniel Benavides MD May 25, 2017 12:23
[2017-05-25 16:00] VITALS: BP 145/87; PULSE 92; RESP 20; TEMP 99.2; O2SAT 95
[2017-05-25] MEDS: ENOXAPARIN SODIUM 40 MG/0.4 ML SYRINGE SQ SCH (16:00)
[2017-05-25] MEDS: BRIMONIDINE OPTH RIGHT EYE SCH (21:00)
[2017-05-25 21:17] VITALS: BP 165/83; PULSE 88; RESP 22; TEMP 99.5; O2SAT 95
[2017-05-25] MEDS: GABAPENTIN 100 MG CAP PO SCH (22:25)
[2017-05-26 01:09] VITALS: BP 162/89; PULSE 80; RESP 20; TEMP 98.9; O2SAT 94
[2017-05-26] MEDS: POTASSIUM PHOSPHATE/SODIUM PHOSPHATE 250 MG TAB PO SCH (05:51)
[2017-05-26 08:00] VITALS: BP 131/84; PULSE 72; RESP 19; TEMP 96.2; O2SAT 93
[2017-05-26] MEDS: ASPIRIN 325 MG TAB PO SCH (08:26)
[2017-05-26] MEDS: metFORMIN HCL 500 MG TAB PO SCH (08:27)
[2017-05-26] MEDS: SODIUM CHLORIDE 0.9% FLUSH 10 ML FLUSH IV FLUSH SCH (08:27)
[2017-05-26] MEDS: DOCUSATE SODIUM 50 MG/SENNA 8.6 MG TAB PO SCH (08:27)
[2017-05-26] MEDS: BRIMONIDINE OPTH RIGHT EYE SCH (08:28)
[2017-05-26] MEDS ORDERED: ATORVASTATIN 10 MG TAB PO SCH (09:00)
[2017-05-26] MEDS ORDERED: amLODIPine BESYLATE 5 MG TAB PO SCH (09:00)
[2017-05-26] MEDS ORDERED: AMLO5 PO (10:56)
[2017-05-26] MEDS ORDERED: LEVA750T9 PO (10:56)
--- NOTE | 2017-05-26 10:57 | HHI.DCPOC ---
Discharge Care Plan Diagnosis: (1) Weakness (2) Hypophosphatemia (3) Hyponatremia (4) Spinal stenosis (5) CAP (community acquired pneumonia) (6) Neuropathy (7) Wheezing (8) Glaucoma (9) HTN (hypertension) (10) DM (diabetes mellitus) (11) HLD (hyperlipidemia) Goals to Promote Your Health * To prevent worsening of your condition and complications * To maintain your health at the optimal level Directions to Meet Your Goals Take your medications as prescribed Follow your dietary instruction Follow activity as directed Keep your appointments as scheduled Take your immunizations and boosters as scheduled If your symptoms worsen call your PCP, if no PCP go to Urgent Care Center or Emergency Room Smoking is Dangerous to Your Health. Avoid second hand smoke Call the 24-hour hour crisis hotline for domestic abuse at Nathaniel Benavides MD May 26, 2017 10:57
[2017-05-26] MEDS ORDERED: IPRASOL INH (10:59)
[2017-05-26] MEDS ORDERED: LEVOFLOXACIN 750 MG TAB PO SCH (11:00)
--- NOTE | 2017-05-26 11:08 | HHI.DS ---
Discharge Summary Admission Date May 23, 2017 at 14:25 Discharge Date: May 26, 2017 Admitting Diagnosis hyponatremia (1) Hyponatremia ICD Code: E87.1 Diagnosis: Principal (2) Weakness ICD Code: R53.1 Diagnosis: Principal (3) Hypophosphatemia ICD Code: E83.39 Diagnosis: Principal (4) Wheezing ICD Code: R06.2 Diagnosis: Principal (5) DM (diabetes mellitus) ICD Code: E11.9 Diagnosis: Principal (6) HLD (hyperlipidemia) ICD Code: E78.5 Diagnosis: Principal (7) HTN (hypertension) ICD Code: I10 Diagnosis: Principal (8) Neuropathy ICD Code: G62.9 Diagnosis: Principal (9) Glaucoma ICD Code: H40.9 Diagnosis: Principal (10) CAP (community acquired pneumonia) ICD Code: J18.9 Diagnosis: Principal Procedures None Brief History - From Admission Is an 82-year-old male with past medical history as stated below presents to [facility] complaining of weakness in bilateral lower extremities. The patient is hard of hearing and somewhat a poor historian. History is obtained with the help of the patient's who is at bedside and from ED physician report. The patient states that approximately a week ago he has been having an upper respiratory infection with cough, postnasal dripping, denies fevers or chills, denies loss of appetite and states he has been eating and drinking fluids well. Patient's corroborates this. The patient denies shortness of breath however he states he has been coughing. Denies wheezing denies fevers or chills. Patient was brought to [facility] because this morning he slid down from his chair while trying to transfer to his car. He states that he usually is able to transfer without problem, however he felt his lower extremities were weaker. The patient denies any dysuria, abdominal pain, nausea, vomiting, diarrhea. At the moment of this interview the patient is coughing and there out of trouble wheezing. CBC/BMP: 05/24/17 0515 05/25/17 0555 Significant Findings Laboratory Tests Test 705/23/17 05/23/17 05/24/17 12:40 15:00 17:20 05:15 Red Blood Count 4.07 MIL/MM3 4.16 MIL/MM3 (4.50-5.90) (4.50-5.90) Hemoglobin 11.0 GM/DL 11.5 GM/DL (13.0-17.0) (13.0-17.0) Hematocrit 33.5 % 34.9 % (39.0-51.0) (39.0-51.0) Mean Platelet Volume 6.9 FL 6.9 FL (7.0-11.0) (7.0-11.0) Monocytes (%) (Auto) 9.4 % (0.0-8.0) 9.7 % (0.0-8.0) Activated Partial 33.4 SEC Thromboplast Time (24.3-30.1) Sodium Level 123 MEQ/L 125 MEQ/L 129 MEQ/L (136-145) (136-145) (136-145) Chloride Level 88 MEQ/L 90 MEQ/L 92 MEQ/L (98-107) (98-107) (98-107) Random Glucose 168 MG/DL 122 MG/DL (74-106) (74-106) Calcium Level 8.0 MG/DL 8.4 MG/DL 8.1 MG/DL (8.5-10.1) (8.5-10.1) (8.5-10.1) Phosphorus Level 1.6 MG/DL (2.5-4.9) Urine Mucus FEW /lpf (OCC) Potassium Level 3.4 MEQ/L (3.5-5.1) Serum Osmolality 263 MOSM/KG (275-295) Albumin 2.9 GM/DL (3.4-5.0) Test 05/25/17 05:55 Sodium Level 135 MEQ/L (136-145) Chloride Level 97 MEQ/L (98-107) Estimat Glomerular Filtration 87 ML/MIN (>89) Rate Calcium Level 8.2 MG/DL (8.5-10.1) Imaging Last Impressions Head CT 05/23/17 0000 Signed Impressions: Service Date/Time: Tuesday, May 23, 2017 13:29 - CONCLUSION: 1. Stable CT scan of the brain compared to the prior exam from 2014. 2. No change in the bilateral cortical atrophy and chronic white matter changes. Jose M Aranda MD Chest X-Ray 05/23/17 0000 Signed Impressions: Service Date/Time: Tuesday, May 23, 2017 16:43 - CONCLUSION: 1. Mild patchy left lower lobe airspace disease with associated mild volume loss. Differential considerations include atelectasis versus developing pneumonia. Jayden Lundy MD PE at Discharge GENERAL: This is a well-nourished, well-developed patient, in no apparent distress. SKIN: No rashes, ecchymoses or lesions. Cool and dry. HEAD: Atraumatic. Normocephalic. No temporal or scalp tenderness. EYES: Pupils equal round and reactive. Extraocular motions intact. No scleral icterus. No injection or drainage. ENT: Nose without bleeding, purulent drainage or septal hematoma. Throat without erythema, tonsillar hypertrophy or exudate. Uvula midline. Airway patent. NECK: Trachea midline. No JVD or lymphadenopathy. Supple, nontender, no meningeal signs. CARDIOVASCULAR: Regular rate and rhythm without murmurs, gallops, or rubs. RESPIRATORY: Lungs are clear to auscultation bilaterally. No rales or rhonchi auscultated. GASTROINTESTINAL: Abdomen soft, non-tender, nondistended. No hepato-splenomegaly , or palpable masses. No guarding. MUSCULOSKELETAL: Extremities without clubbing, cyanosis, or edema. No joint tenderness, effusion, or edema noted. No calf tenderness. Negative Homans sign bilaterally. NEUROLOGICAL: Awake and alert. Cranial nerves II through XII intact. Motor and sensory grossly within normal limits. 4 out of 5 muscle strength in all muscle groups. Normal speech. Pt update on day of discharge Patient wants to go home. Deneis cp/sob. Cough is mild and improved. Hospital Course (1) Hyponatremia This is an 82-year-old male with past medical history of hypertension, hyperlipidemia, diabetes, neuropathy and spinal stenosis presents to [facility] complaining of bilateral extremity weakness after he slipped from his chair while transferred to the car. Patient was administered IV normal saline in the ED - 500 ml Patient was admitted to medical floor IV normal saline continued, hyponatremia resolved - DC IV fluids. (2) Weakness Physical therapy evaluation appreciated. Case discussed with physical therapist patient very weak as per his report will need physical therapy at SNF. (3) Hypophosphatemia Possibly secondary to decreased oral intake. Replaced orally and monitor levels. (4) Wheezing Chest x-ray showed mild patchy left lower lobe airspace disease with associated mild volume loss. Possibly secondary to commit acquired pneumonia. Patient started the patient on IV Levaquin since patient is penicillin allergic. Patient discharged on Duoneb treatments. (5) DM (diabetes mellitus) Placed on SSI with insulin NovoLog and monitor Accu-Cheks. Metformin continued. Glucose remained stable during hospital stay. (6) HLD (hyperlipidemia) Continue statin. (7) HTN (hypertension) Continued home antihypertensive medications which include amlodipine 7.5 mg by mouth daily initially. Bp uncontrolled and amlodipine increased to 10 mg daily earlier on the day of discharge with good control subsequently. (8) Neuropathy Seems to be stable. Continue gabapentin. (9) Glaucoma Continue home Alphagan ophthalmic drops to the right eye. (10) CAP (community acquired pneumonia) Treated with IV Levaquin, switched to oral Levaquin to be given 7 more days after discharge for a total of 10 days. DVT prophylaxis: Patient placed on Lovenox subcutaneously, SCDs during hospital stay. Pt Condition on Discharge: Stable Discharge Disposition: Discharge to SNF Discharge Time: > 30 minutes Discharge Instructions DIET: Follow Instructions for: Diabetic Diet Activities you can perform: See Additionl Instruction Other Activity Instructions: as per PT OOB with assistance only Follow up Referrals: PCP Follow-up - 2 Weeks New Medications: Ipratropium-Albuterol Neb (Duoneb) 0.5-2.5 Mg/3 Ml Neb 1 NEBULE INH Q6HR NEB PRN SOB/WHEEZING #120 Ref 0 NEBULE Amlodipine (Norvasc) 5 Mg Tab 10 MG PO DAILY Blood Pressure Management #31 TAB Levofloxacin (Levaquin) 750 Mg Tablet 750 MG PO DAILY@11 Infection #7 TAB-CAP Continued Medications: Aspirin (Aspirin) 325 Mg Tab 325 MG PO DAILY #30 Ref 0 TAB Brimonidine Opth Drops (Alphagan P Opth Drops) 0.1% Soln 1 DROP RIGHT EYE BID Intraocular pressure #1 Ref 0 BOTTLE Gabapentin (Gabapentin) 300 Mg Cap 200 MG PO HS #90 Ref 0 CAP Metformin ER (Metformin ER) 500 Mg Shannon 500 MG PO BID With evening meal Blood Sugar Management Ref 0 TAB Rosuvastatin (Crestor) 5 Mg Tab 5 MG PO QOD Cholesterol Management #30 Ref 0 TAB Discontinued Medications: Amlodipine (Amlodipine) 2.5 Mg Tab 2.5 MG PO DAILY Blood Pressure Management #30 Ref 0 TAB Amlodipine (Amlodipine) 5 Mg Tab 5 MG PO DAILY Blood Pressure Management #30 Ref 0 TAB Nathaniel Benavides MD May 26, 2017 11:08
[2017-05-26 11:57] VITALS: BP 133/84; PULSE 78; RESP 20; TEMP 95.9; O2SAT 92
[2017-05-26] MEDS ORDERED: RESP: ALBUTEROL 2.5 MG/IPRATROPIUM 0.5 MG NEB (SCH) NEB (14:00)
== END 2017-05-26 13:59 | DRG 640 ==
LOC: PHED 12:15 → PHEDA 14:25 → PH3A 15:14
PROVIDERS: ADMIT Hospitalist; ATTEND Hospitalist
DX: E87.1 Hypo-osmolality and hyponatremia (principal); J18.9 Pneumonia, unspecified organism; G62.9 Polyneuropathy, unspecified; E83.39 Other disorders of phosphorus metabolism; E11.9 Type 2 diabetes mellitus without complications; I10 Essential (primary) hypertension; E78.5 Hyperlipidemia, unspecified; R06.2 Wheezing; H40.9 Unspecified glaucoma; M48.00 Spinal stenosis, site unspecified; Z87.891 Personal history of nicotine dependence; H91.90 Unspecified hearing loss, unspecified ear
CPT/HCPCS: 70450; 71020; 80048; 80053; 81001; 83735; 83930; 83935; 84100; 85025; 85610; 85730; J1650; J1956; J7030; J7040